=== PATIENT | female | born 1975 | race Caucasian/White ===

== ENCOUNTER 2019-12-28 15:59 | Emergency (ER) | payer OTHER ==
[~2019-12-28] VITALS: Ht 157.5 cm; Wt 63.5 kg
[2019-12-28 16:08] VITALS: BP 117/58
[2019-12-28 17:26] LABS: BASOPHILS % (AUTO) 0.2 % (0.0-2.0); EOSINOPHILS % (AUTO) 0.6 % (0.0-4.0); LYMPHOCYTES # (AUTO) 1.7 K/uL (2.5-16.5); LYMPHOCYTES % (AUTO) 21.1 % (20.5-51.1); MEAN CORPUSCULAR HEMOGLOBIN 32 pg (27-31); MEAN CORPUSCULAR HGB CONC 33 g/dL (33-37); MONOCYTES # (AUTO) 0.3 K/uL (0.8-1.0); MONOCYTES % (AUTO) 3.1 % (1.7-9.3); NEUTROPHILS # (AUTO) 6.1 K/uL (1.8-7.7); PLATELET COUNT (AUTO) 225 K/uL (140-450); RED BLOOD CELL COUNT(AUTO) 4.02 MIL/uL (4.20-5.40); RED CELL DISTRIBUTION WIDTH 13.2 % (11.6-13.7); WHITE BLOOD COUNT (AUTO) 8.2 K/uL (4.8-10.8)
[2019-12-28 17:45] LABS: APPEARANCE,URINE CLEAR (CLEAR); BILIRUBIN,URINE NEGATIVE (NEGATIVE); BLOOD, URINE NEGATIVE (NEGATIVE); LEUKOCYTE ESTERASE ,URINE NEGATIVE (NEGATIVE); NITRITE, URINE NEGATIVE (NEGATIVE); PH,URINE 7.5 (5.0-9.0); UGLUCOSE NEGATIVE (NEGATIVE)
[2019-12-28 17:59] LABS: COLOR,URINE STRAW (YELLOW)
[2019-12-28 19:00] VITALS: BP 122/83
== END 2019-12-28 19:00 | disposition home or self-care (01) ==
LOC: MED 15:59
DX: O02.1 Missed abortion (principal)
CPT/HCPCS: 36415; 76817; 81003; 81025; 84702; 85025; 86900; 86901; 99284; Q0092

== ENCOUNTER 2020-01-01 06:54 | Observation (INO) | payer OTHER ==
[~2020-01-01] VITALS: Ht 157.5 cm; Wt 62.6 kg
[2020-01-01 06:57] VITALS: BP 106/58
--- NOTE | 2020-01-01 07:02 | NUR ---
PT TAKEN TO BED 11 VIA WHEELCHAIR.
--- NOTE | 2020-01-01 07:16 | NUR ---
DR CHAO AT BEDSIDE EVALUATING PT.
--- NOTE | 2020-01-01 07:18 | NUR ---
LAB AT BEDSIDE
[2020-01-01] MEDS ORDERED: NACL 0.9% 1,000 ML IV ONE ×3 (07:20→11:15)
--- NOTE | 2020-01-01 07:20 | NUR ---
C/O VAGINAL BLEEDING X 4 DAYS. PT STATES SHE WAS 10 WEEKS , LAST SEEN ON 12/28/19 AND WAS TOLD THAT SHE HAD A MISCARRIAGE.PT AOX 4 , AFIBRILE , AMBULATORY WITH ASSISTANCE ,PALE PALPEBRAL CONJUNCTIVA , SCE , CBS BLF, FLAT SOFT ABDOMEN. MHX: DENIES NKA
[2020-01-01] MEDS ORDERED: ONDANSETRON 4 MG/2 ML VIAL ONE (07:29)
[2020-01-01] MEDS ORDERED: ONDANSETRON 4 MG/2 ML VIAL IVP ONE (07:30)
--- NOTE | 2020-01-01 07:32 | NUR ---
WITNESSED SYNCOPAL EPISODE IN RESTROOM. DR CHAO AWARE. NO NEW ORDERS RECEVIED.
--- NOTE | 2020-01-01 08:10 | NUR ---
PT AWAKE, ALERT, AFIBRILE , COMFORTABLE IN BED NO PAIN COMPLAINT, SIDE RAILS UP X1 AND LOCK .PT HOOK TO MAINTENANCE TECHNICIAN 2ND SHIFT. O2 SAT AT 97 PERCINT.
[2020-01-01 08:17] LABS: BASOPHILS # (AUTO) 0.1 K/uL (0.00-0.22); BASOPHILS % (AUTO) 0.6 % (0.0-2.0); EOSINOPHILS # (AUTO) 0.1 K/uL (0-0.4); EOSINOPHILS % (AUTO) 0.9 % (0.0-4.0); HEMATOCRIT 37.1 % (36-48); HEMOGLOBIN 12.5 g/dL (12.0-16.0); LYMPHOCYTES # (AUTO) 2.6 K/uL (2.5-16.5); LYMPHOCYTES % (AUTO) 24.6 % (20.5-51.1); MEAN CORPUSCULAR HEMOGLOBIN 33 pg (27-31); MEAN CORPUSCULAR HGB CONC 34 g/dL (33-37); MEAN CORPUSCULAR VOLUME 96.2 fL (80-94); MONOCYTES # (AUTO) 0.5 K/uL (0.8-1.0); NEUTROPHILS # (AUTO) 7.3 K/uL (1.8-7.7); NEUTROPHILS % (AUTO) 68.9 % (42.2-75.2); PLATELET COUNT (AUTO) 231 K/uL (140-450); RED BLOOD CELL COUNT(AUTO) 3.85 MIL/uL (4.20-5.40); RED CELL DISTRIBUTION WIDTH 13.4 % (11.6-13.7); WHITE BLOOD COUNT (AUTO) 10.6 K/uL (4.8-10.8)
--- NOTE | 2020-01-01 08:20 | NUR ---
PT AWAKE , ALERT . DR CHAO INFORMED AND AWARE OF PT V/S .
--- NOTE | 2020-01-01 08:33 | NUR ---
LABS AT BEDSIDE.
[2020-01-01 08:45] LABS: APPEARANCE,URINE CLEAR (CLEAR); BILIRUBIN,URINE NEGATIVE (NEGATIVE); BLOOD, URINE NEGATIVE (NEGATIVE); COLOR,URINE YELLOW (YELLOW); LEUKOCYTE ESTERASE ,URINE NEGATIVE (NEGATIVE); NITRITE, URINE NEGATIVE (NEGATIVE); PH,URINE 7.5 (5.0-9.0); UGLUCOSE NEGATIVE (NEGATIVE)
[2020-01-01 09:01] LABS: CARBON DIOXIDE 21.4 mmol/L (21-32); CREATININE 0.8 mg/dL (0.6-1.3); POTASSIUM 3.4 mmol/L (3.5-5.1)
[2020-01-01 09:06] LABS: ALBUMIN 3.4 g/dL (3.4-5.0); TOTAL BILIRUBIN 0.3 mg/dL (0.0-1.0)
--- NOTE | 2020-01-01 09:30 | NUR ---
SPOKE TO BED 11 ,EXPLAINED PT CONDITION AT THIS TIME IS STABLE V/S AND PT WILL BE SEEN BY PLUMBING SERVICE TECHNICIAN
[2020-01-01] MEDS ORDERED: MORPHINE SULFATE 4 MG/ML SYR IVP ONE (10:15)
--- NOTE | 2020-01-01 10:33 | NUR ---
OB AT BEDSIDE EVALUATING PT.
--- NOTE | 2020-01-01 11:22 | NUR ---
DR CHAO INFORMED AND AWARE BP IS LOW PT NO COMPLAINT.
[2020-01-01] MEDS ORDERED: LACTATED RINGERS 1,000 ML IV ONE ×2 (11:40→21:15)
--- NOTE | 2020-01-01 11:40 | NUR ---
pt awake in bed side rails up and lock , bed position in [place] dr bell informed and aware.
--- NOTE | 2020-01-01 11:47 | NUR ---
pt in the phone talking to sister .
--- NOTE | 2020-01-01 12:50 | NUR ---
SPOKE TO PT REGARDING PT CONDITION , QUESTION ANSWERED AND EXPLAINED.
[2020-01-01] MEDS: IBUPROFEN 800 MG TAB PO SCH ×2 (12:56→20:45)
[2020-01-01] MEDS ORDERED: MISOPROSTOL 200 MCG TAB PO SCH (13:19)
--- NOTE | 2020-01-01 14:50 | NUR ---
CHANGE GOWN AND BED LINENS WITHRN FRANTZ AT BEDSIDE.PT COMFORTABLE IN BED ,SIDE RAILS UP X1 AND LOCK.
[2020-01-01 16:30] VITALS: BP 94/74
--- NOTE | 2020-01-01 16:30 | NUR ---
Patient will be admitted to care of Dr James. Admited to M/S. Will go to room 104B. Belongings list completed. Report to cecelia bahena.
--- NOTE | 2020-01-01 16:30 | NUR ---
transfered to m/s with 900 ml left to ivf .
--- NOTE | 2020-01-01 16:40 | NUR ---
RECEIVED PATIENT FROM ED NURSE FOR OBSERVATION AND CONTINUITY OF CARE. PATIENT IS AAOX4. MOSTLY CITIZEN OF [place] SPEAKING. RESPIRATIONS EVEN AND UNLABORED, ROOM AIR. VISIBLE CHEST RISE AND FALL NOTED. MED-SURG. ABDOMEN SOFT AND NONTENDER. SKIN WARM, DRY, AND INTACT. IV IN THE LEFT AC G20, RUNNING LR AT 100 ML/HR. IVF RUNNING WELL. VAGINAL DARK BLOOD BLEEDING NOTED IN THE CHUCKS. AMBULATORY. BED IN LOW POSITION. CALL LIGHT IS WITHIN REACH. WILL CONTINUE TO MONITOR.
--- NOTE | 2020-01-01 16:45 | NUR ---
VS BP: 94/74, HR 69, O2SAT 100% RA, TEMP 97.5, RESP 16. DENIES SOB. DENIES PAIN. MRSA NARES SWAB COLLECTED. PATIENT TOLERATED WELL
[2020-01-01] MEDS: MISOPROSTOL 200 MCG TAB PO SCH ×2 (17:52→23:43)
--- NOTE | 2020-01-01 17:52 | NUR ---
GIVEN CYTOTEC PO. GIVEN MEDICATION EDUCATION. PATIENT VERBALIZED UNDERSTANDING. BED IN LOW POSITION. CALL LIGHT IS WITHIN REACH. WILL CONTINUE TO MONITOR.
--- NOTE | 2020-01-01 19:10 | NUR ---
RECEIVED BEDSIDE REPORT FROM DAY SHIFT NURSE. PT IS ASLEEP BUT EASILY AROUSED BY NOISE AND CALLING NAME. A&O X 4. [place] SPEAKING BUT CAN UNDERSTAND SOME HEBREW. BREATHING IS EVEN AND UNLABORED. PT IS ON RA AND CHEST RISE IS SYMMETRICAL. ABDOMEN IS SOFT AND NONTENDER. PT DENIES ANY PAIN AT THIS TIME. IV IS PATENT AND INTACT IN THE LEFT AC 20 GAUGE SALINE LOCK. BED IS IN THE LOWEST POSITION AND CALL LIGHT IS WITHIN REACH. WILL MONITOR FOR BLEEDING AND ANY SIGNS OF DISTRESS.
--- NOTE | 2020-01-01 19:11 | NUR ---
ENDORSED PATIENT TO THE SENIOR CLINICAL SAS PROGRAMMER NURSE FOR CONTINUITY OF CARE. PATIENT IS AWAKE. NO SIGNS OF DISTRESS NOTED. IS IN STABLE CONDITION.
--- NOTE | 2020-01-01 21:00 | NUR ---
PT IS AWAKE AND ALERT. REQUESTED TO VOID ON THE BEDPAN WITH THE HELP OF JAYANT MONROE. PT REPORTED FEELING DIZZY AND LIGHTHEADED. CHECKED BP TWICE AND THE READING WAS 85/51 WITH A MAP OF 61. CALLED DR LOPEZ AND LEFT A VOICEMAIL TO CALL BACK REGARDING THE PATIENTS CONDITION. WILL CONTINUE TO MONITOR PT.
--- NOTE | 2020-01-01 21:10 | NUR ---
SPOKE TO DR. LOPEZ VIA TELEPHONE AND EXPLAINED THE SITUATION. PT WITH BP 85/51 AND POTASSIUM IS 3.4 DR. LOPEZ ORDERED A BOLUS OF LR 1,000 ML. CONTINUE LR AT 150 ML PER HOUR ORDERED. NPO AT MIDNIGHT FOR POSSIBLE PROCEDURE IN THE MORNING. REPEAT CBC AT 6 AM AND ORDERED A PELVIC US AT 6 AM TOMORROW WELL. WILL COMPLETE THESE INSTRUCTIONS ORDERED. WILL ALSO CONTINUE TO MONITOR PT.
[2020-01-01] MEDS: LACTATED RINGERS 1,000 ML IV SCH ×2 (22:15→23:47)
--- NOTE | 2020-01-01 22:15 | NUR ---
IV LACTATED RINGERS IS INFUSING A BOLUS OF 1,000 ML. IV IS INTACT AND PATENT IN THE LEFT AC 20 GAUGE. PT WAS GIVEN EDUCATION BASED ON FLUID ADMINISTRATION. PT VERBALIZED UNDERSTANDING. WILL CONTINUE TO MONITOR BP AND FLUID INFUSION.
--- NOTE | 2020-01-01 22:45 | NUR ---
IV BOLUS OF LACTATED RINGERS IS STILL INFUSING. BP WAS RECHECKED AT THE READING WAS 87/47 WITH A MAP OF 61. LR HAS 300 ML LEFT TO INFUSE, WILL CONTINUE TO MONITOR BP.
--- NOTE | 2020-01-01 23:40 | NUR ---
PT IS AWAKE AND ALERT. RESPIRATIONS ARE EVEN AND UNLABORED. CHEST RISE IS SYMMETRICAL. PT IS NO LONGER COMPLAINING OF FEELING DIZZY. RECHECKED BP WHILE PT WAS SITTING UP AND IT WAS 87/42 WITH A MAP OF 53. CONTACTED DR. LOPEZ VIA TELEPHONE AND REPORTED THE BP READING. DR. LOPEZ ORDERED A STAT CBC. ALSO INFORMED DR. LOPEZ THAT THERE WERE FEW SMALL CLOTS OF BLOOD IN THE URINE AFTER SHE VOIDED. NO OTHER ORDERS WERE DIRECTED AT THIS TIME. WILL CONTINUE TO MONITOR PT.
[2020-01-02] VITALS: BP 91/41
--- NOTE | 2020-01-02 | NUR ---
PT WAS PLACED ON NPO AT MIDNIGHT PER DOCTORS ORDER. PT EDUCATION WAS PROVIDED AND SIGNS WERE POSTED ON THE DOOR. IV FLUIDS ARE RUNNING AND IV SITE IS INTACT. PT IS STABLE AT THIS TIME.
[2020-01-02 00:19] LABS: BASOPHILS # (AUTO) 0.1 K/uL (0.00-0.22); EOSINOPHILS # (AUTO) 0.1 K/uL (0-0.4); EOSINOPHILS % (AUTO) 1.7 % (0.0-4.0); MEAN CORPUSCULAR VOLUME 96.9 fL (80-94); NEUTROPHILS # (AUTO) 5.1 K/uL (1.8-7.7)
[2020-01-02 00:29] LABS: BASOPHILS % (AUTO) 0.7 % (0.0-2.0); HEMATOCRIT 22.3 % (36-48); LYMPHOCYTES # (AUTO) 2.8 K/uL (2.5-16.5); MEAN CORPUSCULAR HEMOGLOBIN 33 pg (27-31); MEAN CORPUSCULAR HGB CONC 34 g/dL (33-37); MONOCYTES # (AUTO) 0.5 K/uL (0.8-1.0); NEUTROPHILS % (AUTO) 59.6 % (42.2-75.2); PLATELET COUNT (AUTO) 153 K/uL (140-450); RED CELL DISTRIBUTION WIDTH 13.2 % (11.6-13.7); WHITE BLOOD COUNT (AUTO) 8.6 K/uL (4.8-10.8)
[2020-01-02 00:33] LABS: HEMOGLOBIN 7.6 g/dL (12.0-16.0)
--- NOTE | 2020-01-02 01:30 | NUR ---
PT IS SLEEPING. RESPIRATIONS ARE EVEN AND UNLABORED. NO APPARENT SIGNS OF DISTRESS. WILL CONTINUE TO MONITOR.
--- NOTE | 2020-01-02 01:50 | NUR ---
AMANDA, CHARGE NURSE, SPOKE WITH DR. LOPEZ AND INFORMED HIM ABOUT THE STAT HGB LEVEL BEING 7.6 FROM 12.5 YESTERDAY MORNING. NO ORDERS WERE GIVEN AT THIS TIME. WILL CONTINUE TO MONITOR PT FOR BLOOD LOSS.
--- NOTE | 2020-01-02 04:32 | NUR ---
PT IS ASLEEP BUT EASILY AROUSED BY NAME. NO SIGNS OF DISTRESS NOTED. IV IS INFUSING AND INTACT WITH NO SIGNS OF SWELLING. BED IS IN LOWEST POSITION AND CALL LIGHT IS WITHIN REACH.
[2020-01-02] MEDS: IBUPROFEN 800 MG TAB PO SCH (05:35)
[2020-01-02] MEDS: MISOPROSTOL 200 MCG TAB PO SCH (05:35)
--- NOTE | 2020-01-02 05:50 | NUR ---
PT AMBULATED TO THE RESTROOM. MODERATE AMOUNT OF BLOOD ON PAD. PT ALSO WAS PROVIDED ORAL CARE WITH STANDBY ASSIST. PT IS BACK IN BED. A&O X 4. NO DISTRESS NOTED.
[2020-01-02] MEDS: LACTATED RINGERS 1,000 ML IV SCH (06:48)
--- NOTE | 2020-01-02 07:00 | NUR ---
PROVIDED BEDSIDE REPORT TO DAY SHIFT NURSE FOR CONTINUITY OF CARE. PT IS STABLE AT THIS TIME. NO DISTRESS NOTED.
--- NOTE | 2020-01-02 07:30 | NUR ---
RECEIVED PT AAOX4. NO SOB NOTED. NO C/O PAIN AT THIS TIME. IV TO LT AC PATENT AND INTACT. CHEST CLEAR. ABDOMEN SOFT, BOWEL SOUNDS PRESENT. NO EDEMA NOTED. INSTRUCTED PT TO CALL FOR ASSISTANCE, CALL LIGHT WITHIN REACH, PT VERBALIZED UNDERSTANDING.
[2020-01-02 08:00] VITALS: BP 96/50
--- NOTE | 2020-01-02 08:00 | NUR ---
NPO POST MIDNIGHT MAINTAINED, PT VERBALIZED UNDERSTANDING.
--- NOTE | 2020-01-02 09:18 | NUR ---
PATIENT HAS BEEN SCREENED AND CATEGORIZED LOW NUTRITION RISK. PATIENT WILL BE SEEN WITHIN 7 DAYS OF ADMISSION. 01/08/[address]
--- NOTE | 2020-01-02 09:30 | NUR ---
ASSISTED PT TO THE BATHROOM. MODERATE AMOUNTS OF VAGINAL BLEEDING NOTED UPON URINATION. INSTRUCTED PT TO CALL IF PROFUSE VAGINAL BLEEDING NOTED. PT VERBALIZED UNDERSTANDING.
--- NOTE | 2020-01-02 10:30 | NUR ---
ULTRASOUND OF THE PELVIS ON GOING AT THE BEDSIDE.
--- NOTE | 2020-01-02 11:34 | NUR ---
DISCHARGE PLANNING: THIS IS A 44 Y/O FEMALE PATIENT FROM HOME, WHO CAME IN DUE TO VAGINAL BLEEDING. NO PERTINENT MEDICAL HISTORY. INITIAL DIAGNOSIS OF INCOMPLETE MISCARRIAGE. CURRENT LABS INCLUDE WBC 8.6, H/H 7.6/22.3, NA/K 139/3.4, BUN/CREA 10/0.8, HCG 7418. PELVIS U/S SHOWED COMPLETE MISCARRIAGE WITH INTERVAL PASSAGE OF GESTATIONAL SAC. NO EVIDENCE OF RETAINED PRODUCTS OF CONCEPTION. DC PLAN BACK TO HOME ONCE STABLE.
--- NOTE | 2020-01-02 12:15 | NUR ---
CALLED DR. LOPEZ REGARDING PT'S ULTRASOUND RESULT. NO ANSWER, VOICEMAIL MESSAGE LEFT, AWAITING FOR CALL BACK.
[2020-01-02 12:44] LABS: BASOPHILS % (AUTO) 0.6 % (0.0-2.0); EOSINOPHILS # (AUTO) 0.1 K/uL (0-0.4); EOSINOPHILS % (AUTO) 1.1 % (0.0-4.0); HEMATOCRIT 21.5 % (36-48); HEMOGLOBIN 7.3 g/dL (12.0-16.0); LYMPHOCYTES # (AUTO) 2.5 K/uL (2.5-16.5); LYMPHOCYTES % (AUTO) 34.4 % (20.5-51.1); MEAN CORPUSCULAR HEMOGLOBIN 33 pg (27-31); MEAN CORPUSCULAR HGB CONC 34 g/dL (33-37); MEAN CORPUSCULAR VOLUME 97.8 fL (80-94); MONOCYTES # (AUTO) 0.4 K/uL (0.8-1.0); MONOCYTES % (AUTO) 5.2 % (1.7-9.3); NEUTROPHILS # (AUTO) 4.2 K/uL (1.8-7.7); NEUTROPHILS % (AUTO) 58.7 % (42.2-75.2); PLATELET COUNT (AUTO) 145 K/uL (140-450); RED CELL DISTRIBUTION WIDTH 13.6 % (11.6-13.7); WHITE BLOOD COUNT (AUTO) 7.1 K/uL (4.8-10.8)
--- NOTE | 2020-01-02 13:38 | NUR ---
PEDIATRIC IMMUNOLOGIST NOTE: Patient's Orientation Person Situation Place Time Information Provided By PATIENT Comments SW MET PATIENT AT BEDSIDE TO VERIFY DEMOGRAPHICS. Waterworks Operator, Realtionship and Phone Number FRANCISCO JAVIER [facility] Power of Clinical Counselor No Does Patient Have a POLST No Identifying Problems No Social Work Triggers Is A Social Work Consult Needed No Mandate Report Filed No Explanation Of Identifying Problems PATIENT IS A 44-YEAR-OLD FEMALE ADMITTED FOR INCOMPLETE MISCARRIAGE. PATIENT HAS NO PERTINENT PMHX. Admitted From Home Pre-Admission Level Of Functioning Status Independent/Ambulatory Prior Resources/Services Used In Last 12 Months No Prior Resources Used Prior DME No Prior DME Used Living Situation Lives With Family House Patient Had Caregiver No Home Support No Caregiver Issues Financial Issues No Known Financial Issue Referral To The Financial Counselor Needed No Factors/Needs No D/C Needs Identified Pt/Rep Participated In Discharge Plan Yes Patient/Family Agress With Discharge Plan Yes Discharge Plan Comments TENTATIVE DISCHARGE PLAN IS FOR PATIENT TO RETURN HOME. DC Plan Status Initiated
--- NOTE | 2020-01-02 14:00 | NUR ---
PT SEEN BY DR. LOPEZ AT [facility] BEDSIDE. NEW ORDERS GIVEN. PER DR. LOPEZ, HE WILL CALL PT'S PREFERRED PHARMACY ([facility]) AND INSTRUCTED PT TO PICK IT UP LATER TODAY. PT VERBALIZED UNDERSTANDING.
--- NOTE | 2020-01-02 15:00 | NUR ---
PT TOLERATED REGULAR DIET. NO N&V NOTED.
[2020-01-02] MEDS ORDERED: IBUPROFEN 800 MG TAB PO PRN (15:30)
[2020-01-02 16:00] VITALS: BP 98/41
--- NOTE | 2020-01-02 16:15 | NUR ---
PT ABLE TO GET UP TO THE BATHROOM WITHOUT ASSISTANCE, NO C/O DIZZINESS PER PT. SMALL TO MODERATE AMOUNTS OF VAGINAL BLEEDING NOTED.
--- NOTE | 2020-01-02 17:50 | NUR ---
DISCHARGE INSTRUCTIONS GIVEN TO PT WHICH VERBALIZED FULL UNDERSTANDING OF THE INSTRUCTIONS GIVEN AND THE NEED TO FOLLOW WITH DR. LOPEZ IN 1 WEEK. ARM BANDS AND IV REMOVED, CANNULA TIP INTACT. PT WHEELED TO THE FRONT LOBBY IN STABLE CONDITION, NO PROFUSE VAGINAL BLEEDING NOTED. PT IS D/C HOME WITH .
--- NOTE | 2020-01-11 14:05 | NUR ---
LATE ENTRY- NORMAL SALINE 0.9% IV FLUIDS DISCONTINUED AT 1630.
== END 2020-01-02 17:50 | disposition home or self-care (01) ==
LOC: MED 06:54 → INTOOBSV 16:05 → MTU 16:05
PROVIDERS: ADMIT Obstetrics & Gynecology; ATTEND Obstetrics & Gynecology
DX: O03.4 Incomplete spontaneous abortion without complication (principal); O26.891 Other specified pregnancy related conditions, first trimester; R42 Dizziness and giddiness; O99.89 Other specified diseases and conditions complicating pregnancy, childbirth and the puerperium; I95.9 Hypotension, unspecified; O99.011 Anemia complicating pregnancy, first trimester; D62 Acute posthemorrhagic anemia; O09.521 Supervision of elderly multigravida, first trimester; Z3A.01 Less than 8 weeks gestation of pregnancy
CPT/HCPCS: 36415; 76856; 80053; 81003; 84702; 85025; 87081; 96361; 96374; 96375; 99284; G0378; J2270; J2405; J7120; Q0092

== ENCOUNTER 2020-03-05 05:09 | Day surgery (SDC) | payer OTHER, SELFPAY ==
[~2020-03-05] VITALS: Ht 157.5 cm; Wt 65.3 kg
[2020-03-05 05:57] LABS: BASOPHILS % (AUTO) 0.5 % (0.0-2.0); EOSINOPHILS # (AUTO) 0.2 K/uL (0-0.4); EOSINOPHILS % (AUTO) 2.7 % (0.0-4.0); HEMATOCRIT 41.6 % (36-48); HEMOGLOBIN 13.8 g/dL (12.0-16.0); LYMPHOCYTES # (AUTO) 3.9 K/uL (2.5-16.5); LYMPHOCYTES % (AUTO) 44.4 % (20.5-51.1); MEAN CORPUSCULAR HEMOGLOBIN 33 pg (27-31); MEAN CORPUSCULAR HGB CONC 33 g/dL (33-37); MEAN CORPUSCULAR VOLUME 99.3 fL (80-94); MONOCYTES # (AUTO) 0.5 K/uL (0.8-1.0); MONOCYTES % (AUTO) 6.1 % (1.7-9.3); NEUTROPHILS % (AUTO) 46.3 % (42.2-75.2); PLATELET COUNT (AUTO) 242 K/uL (140-450); RED BLOOD CELL COUNT(AUTO) 4.19 MIL/uL (4.20-5.40); RED CELL DISTRIBUTION WIDTH 12.8 % (11.6-13.7); WHITE BLOOD COUNT (AUTO) 8.7 K/uL (4.8-10.8)
[2020-03-05 05:57] LABS: APPEARANCE,URINE CLEAR (CLEAR); BILIRUBIN,URINE NEGATIVE (NEGATIVE); BLOOD, URINE NEGATIVE (NEGATIVE); COLOR,URINE YELLOW (YELLOW); LEUKOCYTE ESTERASE ,URINE NEGATIVE (NEGATIVE); NITRITE, URINE NEGATIVE (NEGATIVE); UGLUCOSE NEGATIVE (NEGATIVE)
[2020-03-05 06:15] LABS: ALBUMIN 3.4 g/dL (3.4-5.0); ANION GAP 11.4 (8-16); CARBON DIOXIDE 28.2 mmol/L (21-32); CREATININE 0.7 mg/dL (0.6-1.3); POTASSIUM 3.6 mmol/L (3.5-5.1); TOTAL BILIRUBIN 0.1 mg/dL (0.0-1.0)
[2020-03-05] MEDS ORDERED: NEOSTIGMINE 1:1000 10 MG/10 ML VIAL ONE (07:24)
[2020-03-05] MEDS ORDERED: DESFLURANE 240 ML BTL INH ONE (07:24)
[2020-03-05] MEDS ORDERED: SUCCINYLCHOLINE CHLORIDE 200 MG/10 ML VIAL IVP ONE (07:24)
[2020-03-05] MEDS ORDERED: ONDANSETRON 4 MG/2 ML VIAL ONE (07:24)
[2020-03-05] MEDS ORDERED: PROPOFOL 200 MG/20 ML VIAL IV ONE (07:24)
[2020-03-05] MEDS ORDERED: ROCURONIUM 50 MG/5 ML VIAL IV ONE (07:24)
[2020-03-05] MEDS ORDERED: KETOROLAC 30 MG/ML VIAL ONE (07:24)
[2020-03-05] MEDS ORDERED: GLYCOPYRROLATE 0.2 MG/ML VIAL ONE (07:24)
[2020-03-05] MEDS ORDERED: fentaNYL citrate 0.05 MG/ML VIAL ONE (07:24)
[2020-03-05] MEDS ORDERED: DEXAMETHASONE 4 MG/ML VIAL ONE (07:24)
[2020-03-05] MEDS ORDERED: BUPIVACAINE-MPF/EPI 0.25% 10 ML VIAL INJ ONE ×2 (07:45→07:58)
[2020-03-05] MEDS ORDERED: ONDANSETRON 4 MG/2 ML VIAL IVP PRN (07:45)
[2020-03-05] MEDS ORDERED: HYDROmorphone 1 MG/ML AMP IVP PRN (07:45)
[2020-03-05] MEDS ORDERED: oxyCODONE/APAP 5/325 MG 1 TAB TAB PO PRN (09:45)
[2020-03-05] MEDS ORDERED: KETOROLAC 30 MG/ML VIAL IVP SCH (09:45)
== END 2020-03-05 11:00 | disposition home or self-care (01) ==
LOC: MDS 05:09 → MFCC 05:26 → MDS 11:00
PROVIDERS: ATTEND Obstetrics & Gynecology
DX: Z30.2 Encounter for sterilization (principal); N93.9 Abnormal uterine and vaginal bleeding, unspecified; F32.9 Major depressive disorder, single episode, unspecified; Z98.890 Other specified postprocedural states; Z20.828 Contact with and (suspected) exposure to other viral communicable diseases
CPT/HCPCS: 36415; 58558; 58662; 80053; 81003; 81025; 85025; 86886; 86900; 86901; 87086; J0330; J1100; J1885; J2405; J2704; J2710; J3010; J3490; J7030; J7120; U0003; J1170